=== PATIENT | male | born 1990 | race Two or more races ===

== ENCOUNTER 2016-07-04 07:20 | Emergency (ER) | payer SELFPAY ==
[2016-07-04] MEDS ORDERED: IOPAMIDOL 300 (61%) 150 ML VIAL IV ONE (07:21)
[2016-07-04 08:41] LABS: ABSOLUTE NEUTROPHIL COUNT 3.2 K/mm3 (1.8-7.7); BASO % 0.4 % (0.2-1.0); EOS # 0.1 (0.0-0.5); HEMATOCRIT 48.3 % (32.0-52.0); HEMOGLOBIN 16.4 gm/l (14.0-18.0); IMM NEUT% 0.2 % (0-1); LYMPH # 1.5 (1.0-4.8); LYMPH % 28.5 % (15-45); MEAN CELL VOLUME 90.6 fl (80.0-94.0); MEAN CORPUSCULAR HEMOGLOBIN 30.8 pg (27.0-31.0); MEAN PLATELET VOLUME 9.7 fl (7.4-10.4); MONO # 0.4 (0.0-0.8); NEUT % 61.9 % (43-75); PLATELET COUNT 235 K/mm3 (130-400); RED CELL DISTRIBUTION WIDTH 11.9 % (11.5-14.5)
[2016-07-04 08:44] LABS: URINE BILIRUBIN NEGATIVE (NEGATIVE); URINE BLOOD NEGATIVE (NEGATIVE); URINE GLUCOSE (UA) NEGATIVE (NEGATIVE); URINE LEUKOCYTE ESTERASE NEGATIVE (NEGATIVE); URINE NITRITE NEGATIVE (NEGATIVE); URINE PROTEIN NEGATIVE (NEGATIVE); URINE UROBILINOGEN NORMAL (0-1 mg/dl)
[2016-07-04 08:50] LABS: URINE APPEARANCE CLEAR; URINE COLOR YELLOW
[2016-07-04 09:01] LABS: ALB/GLOB RATIO 2.2 (>1.0); ALBUMIN 4.7 gm/dL (3.5-5.7); CALCIUM 9.5 mg/dL (8.6-10.3)
--- NOTE | 2016-07-04 09:31 | US ---
EXAMINATION: Limited gallbladder ultrasound examination was performed. CLINICAL INDICATION: Right upper quadrant pain. COMPARISON: None FINDINGS: Gallbladder: 7.3 cm in length. Cholelithiasis:None Gallbladder wall thickness: 2 millimeters. Pericholecystic fluid: Absent Common bile duct:Not dilated and measures 4 millimeters. Sonographic Taylor's sign: None elicited. IMPRESSION: Normal gallbladder ultrasound. The findings were uploaded to the electronic medical record for review at approximately 9:32 AM 07/04/2016
--- NOTE | 2016-07-04 10:21 | CT ---
EXAMINATION: Contrast enhanced CT scan of the abdomen and pelvis. CLINICAL INDICATION: Right-sided abdominal pain COMPARISON: None TECHNIQUE: Oral contrast: None Following uneventful administration of 125 mL of Isovue 300, intravenously axial images were acquired from just above the domes of the diaphragm to the iliac crest. A CT scan of the pelvis was also obtained from the iliac crest to the initial tuberosities. Stacked axial, sagittal, and coronal images were reviewed. Findings: Abdomen CT: (Contrast-enhanced): The lung bases are clear and are without mass or pleural effusion. The liver is unremarkable. The gallbladder is within normal limits. There is no evidence of biliary obstruction. The spleen size and attenuation are within normal limits. The pancreas is normal in size and contours. No inflammatory stranding is identified. The pancreatic duct is unremarkable. The adrenals are unremarkable. The kidneys are without mass or hydronephrosis. No nephrolithiasis is identified. The abdominal aorta unremarkable. There is no retroperitoneal adenopathy identified. The stomach is unremarkable. The visualized segments of small and large bowel are within normal limits. The osseous structures exhibit no displaced fracture. No lytic or blastic lesions are identified. Pelvic CT: (Contrast -enhanced): The distal ureters and bladder are unremarkable. The prostate is normal in size. No adenopathy is identified. The distal abdominal aorta and iliac vessels are within normal limits. The visualized segments of small and large bowel are within normal limits. The appendix is unremarkable. No displaced fractures are identified. There are no gross osteolytic or blastic lesions. The overlying soft tissues are unremarkable. IMPRESSION: No evidence of acute obstructive or inflammatory pathology involving the abdomen and pelvis. The findings were uploaded to the electronic medical record for review at approximately 10:22 AM 07/04/2016
[2016-07-04] MEDS ORDERED: ACETAMINOPHEN 500 MG TABLET ONE (11:02)
== END 2016-07-04 11:13 | disposition home or self-care (01) ==
LOC: ED 07:20
DX: R10.11 Right upper quadrant pain (principal)
CPT/HCPCS: 83690; 85025; 80053; 81003; 74177; 76705; 99284 ×2; A9270; Q9967